=== PATIENT | male | born 1990 | race Caucasian/White ===

== ENCOUNTER 2017-11-20 00:41 | Emergency (ER) | payer OTHER ==
[2017-11-20 00:53] VITALS: PULSE 116; O2SAT 98
[2017-11-20] MEDS ORDERED: TENIVAC VIAL IM ONE (00:54)
--- NOTE | 2017-11-20 01:06 | ERPHSYRPT ---
- History of Present Illness Time Seen by Provider: 11/20/17 01:00 Source: patient Exam Limitations: no limitations Patient Subjective Stated Complaint: pt states he hit his head and lost consciousness for 1-2 seconds. Triage Nursing Assessment: Pt a&o. pt ambulatory. laceration noted above left eyebrow. bleeding controlled. bruising also noted on forehead. PERRLA. pt is responding and answering questions appropriately. Physician History: 27 y/o male sent from residential after hitting the left side of his forehead against a metal railing on the side of his bed. Pt does not remember hitting his head and was found on the floor unconscious for an unknown period of time. Pt describes the pain as aching, constant, 4/10, and pt has not taken any pain meds. No neck or back pain. Pt arrives with a 2 cm laceration above the left eyebrow. Tetanus is not up to date. Occurred: just prior to arrival Severity: mild Head Injury Location: frontal Method of Injury: direct blow Loss of Consciousness: other (unknown period of time unconscious) Associated Symptoms: denies symptoms Allergies/Adverse Reactions: No Known Drug Allergies Allergy (Unverified 11/20/17 01:23) Hx Tetanus, Diphtheria Vaccination/Date Given: No Hx Influenza Vaccination/Date Given: No Hx Pneumococcal Vaccination/Date Given: No - Review of Systems Constitutional: No Fever, No Chills Eyes: No Symptoms, No Vision Changes Ears, Nose, & Throat: No Symptoms Respiratory: No Cough, No Dyspnea Cardiac: No Chest Pain, No Edema, No Syncope Abdominal/Gastrointestinal: No Abdominal Pain, No Nausea, No Vomiting, No Diarrhea Genitourinary Symptoms: No Dysuria Musculoskeletal: No Back Pain, No Neck Pain Skin: No Rash Neurological: Headache, No Dizziness, No Focal Weakness, No Sensory Changes Psychological: No Symptoms Endocrine: No Symptoms All Other Systems: Reviewed and Negative - Past Medical History Pertinent Past Medical History: No Neurological History: No Pertinent History ENT History: No Pertinent History Cardiac History: No Pertinent History Respiratory History: No Pertinent History Endocrine Medical History: No Pertinent History Musculoskeletal History: No Pertinent History GI Medical History: No Pertinent History History: No Pertinent History Psycho-Social History: No Pertinent History Male Reproductive Disorders: No Pertinent History - Past Surgical History Past Surgical History: No Neuro Surgical History: No Pertinent History Cardiac: No Pertinent History Respiratory: No Pertinent History Gastrointestinal: No Pertinent History Genitourinary: No Pertinent History Musculoskeletal: No Pertinent History Male Surgical History: No Pertinent History - Social History Smoking Status: Former smoker How long have you smoked: 3 Exposure to second hand smoke: Yes Drug Use: marijuana Patient Lives Alone: No - Nursing Vital Signs Nursing Vital Signs: Initial Vital Signs Temperature 98.6 F 11/20/17 00:41 Pulse Rate 116 H 11/20/17 00:41 Blood Pressure 124/88 11/20/17 00:41 O2 Sat by Pulse Oximetry 98 11/20/17 00:41 Pain Scale Pain Intensity 5 - Stanley Coma Score Best Eye Response (Stanley): (4) open spontaneously Best Verbal Response (Stanley): (5) oriented Best Motor Response (Stanley): (6) obeys commands [place] Total: 15 - Physical Exam General Appearance: no apparent distress, alert Head Injury: contusions, lacerations, swelling Eye Exam: bilateral eye: PERRL, EOMI ENT Exam: airway nml Neck Exam: supple, trachea midline, full range of motion Cardiovascular/Respiratory Exam: chest non-tender, normal breath sounds, regular rate/rhythm Gastrointestinal/Abdominal Exam: soft, non tender, no distention Back Exam: normal inspection, No vertebral tenderness Extremity Exam: non-tender, normal range of motion, normal inspection Mental Status Exam: alert, oriented x 3, cooperative Motor/Sensory Exam: no motor deficit, no sensory deficit, CN II-XII intact Skin Exam: normal color, warm, dry, No rash SpO2: 98 Procedures - Laceration/Wound Repair Head Wound Location: Left, forehead Wound Length (cm): 2 Wound's Depth, Shape: into muscle, linear Wound Explored: clean Irrigated: Yes Hibiclens Prep: Yes Anesthesia: local, 1% Lidocaine Volume Anesthetic (ccs): 4 Wound Debrided: moderate Wound Repaired With: sutures Suture Size/Type: 4-0, ethilon Number of Sutures: 4 Layer Closure?: Yes - Course Nursing assessment & vital signs reviewed: Yes Ordered Tests: Active Orders 24 hr Category Date Time Status HEAD WITHOUT CONTRAST [CT] Stat Exams 11/20/17 01:02 Taken Medication Summary Discontinued Medications Generic Name Dose Route Start Last Admin Trade Name Freq PRN Reason Stop Dose Admin Tetanus/Diphtheria Toxoids Adsorbed Confirm 11/20/17 00:54 Tenivac Vial Administered 11/20/17 00:55 Dose 0.5 ml IM .STK-MED ONE - Progress Progress: improved Progress Note: 11/20/17 01:56 See Procedure Note. The CT scan head does not show any acute bleed. Pt will be sent back to residential. - Departure Time of Disposition: 01:57 Departure Disposition: Alf/Long Term Clinical Impression: Forehead laceration Qualifiers: Encounter type: initial encounter Qualified Code(s): S01.81XA - Laceration without foreign body of other part of head, initial encounter Condition: Stable Critical Care Time: No Referrals: DOCTOR,NO FAMILY [Primary Care Provider] - Instructions: Laceration Repair With Stitches (DC) Additional Instructions: Have the stitches removed in 7 days.
[2017-11-20 02:00] VITALS: BP 133/90
[2017-11-20] MEDS ORDERED: Adacel Vial IM ONE (04:51)
--- NOTE | 2017-11-20 09:07 | XRAY ---
Indication: Frontal head abrasion following fall out of bed. Multiple contiguous axial images obtained through the head without contrast. Comparison: None Tiny left frontal scalp soft tissue swelling. Otherwise normal appearing brain parenchyma, ventricles, and bony calvarium. Moderate mucosal thickening of the right ethmoid sinus and minimal in the left maxillary sinus. Mastoid air cells are clear. Impression: 1. Left frontal scalp soft tissue swelling. No underlying fracture or acute intracranial abnormalities. 2. Incidental paranasal sinus disease. Comment: Preliminary interpretation was made by [facility]. No discrepancy. CTDI 52.39
== END 2017-11-20 02:05 | disposition home or self-care (01) ==
LOC: ED 00:41
PROC: 0HQ1XZZ Repair Face Skin, External Approach (ICD-10-PCS; principal; 2017-11-20)
DX: S01.81XA Laceration without foreign body of other part of head, initial encounter (principal); W22.03XA Walked into furniture, initial encounter; Y92.89 Other specified places as the place of occurrence of the external cause
CPT/HCPCS: 12011; 70450; 90471; 90714; 90715; 99283; 99284

== ENCOUNTER 2018-04-22 18:20 | Emergency (ER) | payer OTHER ==
[2018-04-22 19:25] VITALS: BP 127/82; PULSE 86; O2SAT 99
[2018-04-22] MEDS ORDERED: Rocephin 1000 MG INJ IM ONE (20:09)
[2018-04-22] MEDS ORDERED: solu-MEDROL 125 MG IM ONE (20:09)
--- NOTE | 2018-04-22 20:09 | ERPHSYRPT ---
- History of Present Illness Time Seen by Provider: 04/22/18 19:45 Source: patient Exam Limitations: no limitations Patient Subjective Stated Complaint: Pt states "I have been having lower left lung pain for the past month, my girlfriend was in here earlier today and she has bronchitis and I have been coughing too." Triage Nursing Assessment: Pt alert and oriented X 3, skin pwd. PT ambulates with an upright steady gait, able to speak in clear full sentences. PT in no apparent respiratory distress. Pt is coughing occasionally, non productive, lung sounds clear equal bilat Physician History: 27 y/o white male presents with coughing for over a month. has intermittent left lateral rib pain with coughing. pts sig other here earlier today and dx with bronchitis. pt states he would like liquid meds for home Timing/Duration: intermittent, other (over a month) Cough Quality/Degree: mild, dry cough Possible Cause: occasional episodes Modifying Factors: Improves With: nothing Associated Symptoms: chest pain/soreness (left lateral chest wall), cough, No fever, No chills Allergies/Adverse Reactions: No Known Drug Allergies Allergy (Verified 04/22/18 19:25) Hx Tetanus, Diphtheria Vaccination/Date Given: Yes Hx Influenza Vaccination/Date Given: No Hx Pneumococcal Vaccination/Date Given: No Immunizations Up to Date: Yes - Review of Systems Constitutional: No Symptoms, No Fever, No Chills Eyes: No Symptoms, No Discharge, No Eye Pain Ears, Nose, & Throat: No Symptoms, No Ear Pain, No Ear Discharge Respiratory: Cough, No Dyspnea, No Stridor, No Wheezing Cardiac: No Symptoms, No Chest Pain, No Palpitations, No Syncope Abdominal/Gastrointestinal: No Symptoms, No Abdominal Pain, No Nausea, No Vomiting, No Diarrhea Genitourinary Symptoms: No Symptoms, No Dysuria, No Frequency, No Hematuria Musculoskeletal: No Symptoms, No Back Pain, No Neck Pain, No Fall, No Injury Skin: No Symptoms Neurological: No Symptoms Psychological: No Symptoms Endocrine: No Symptoms Hematologic/Lymphatic: No Symptoms Immunological/Allergic: No Symptoms All Other Systems: Reviewed and Negative - Past Medical History Pertinent Past Medical History: No Neurological History: No Pertinent History ENT History: No Pertinent History Cardiac History: No Pertinent History Respiratory History: No Pertinent History Endocrine Medical History: No Pertinent History Musculoskeletal History: No Pertinent History GI Medical History: No Pertinent History History: No Pertinent History Psycho-Social History: No Pertinent History Male Reproductive Disorders: No Pertinent History - Past Surgical History Past Surgical History: No Neuro Surgical History: No Pertinent History Cardiac: No Pertinent History Respiratory: No Pertinent History Gastrointestinal: No Pertinent History Genitourinary: No Pertinent History Musculoskeletal: No Pertinent History Male Surgical History: No Pertinent History - Social History Smoking Status: Current every day smoker How long have you smoked: years Exposure to second hand smoke: Yes Drug Use: marijuana Patient Lives Alone: No - Nursing Vital Signs Nursing Vital Signs: Initial Vital Signs Temperature 98.9 F 04/22/18 19:20 Pulse Rate 86 04/22/18 19:20 Respiratory Rate 18 04/22/18 19:20 Blood Pressure 127/82 04/22/18 19:20 O2 Sat by Pulse Oximetry 99 04/22/18 19:20 Pain Scale Pain Intensity 4 - Physical Exam General Appearance: no apparent distress, alert Eye Exam: PERRL/EOMI Ears, Nose, Throat Exam: normal ENT inspection Neck Exam: normal inspection, non-tender, supple, full range of motion Respiratory Exam: normal breath sounds, lungs clear, No respiratory distress, No airway intact, No diminished breath sounds, No accessory muscle use, No wheezing, No stridor Cardiovascular Exam: regular rate/rhythm Gastrointestinal/Abdomen Exam: soft, normal bowel sounds, No tenderness, No guarding, No rebound Rectal Exam: not done Back Exam: normal inspection, normal range of motion, No CVA tenderness, No vertebral tenderness Extremity Exam: normal inspection, normal range of motion, pelvis stable Neurologic Exam: alert, oriented x 3, cooperative, senior java j2ee developer II-XII nml as tested, normal mood/affect, nml cerebellar function Skin Exam: normal color, warm, dry Lymphatic Exam: No adenopathy SpO2 Interpretation: normal SpO2: 99 Oxygen Delivery: Room Air - Course Nursing assessment & vital signs reviewed: Yes Ordered Tests: Medication Summary Discontinued Medications Generic Name Dose Route Start Last Admin Trade Name Freq PRN Reason Stop Dose Admin Hydrocodone Bitart/Acetaminophen 10 ml 04/22/18 20:10 04/22/18 20:23 Hydrocodone-Acetamin 2.5-108/5 Ml Solution PO 04/22/18 20:11 10 ml STAT STA Administration Hydrocodone Bitart/Acetaminophen Confirm 04/22/18 20:13 Hydrocodone-Acetamin 2.5-108/5 Ml Solution Administered 04/22/18 20:14 Dose 10 ml .ROUTE .STK-MED ONE Ceftriaxone Sodium 1,000 mg 04/22/18 20:09 04/22/18 20:22 Rocephin 1000 Mg Inj IM 04/22/18 20:10 1,000 mg STAT ONE Administration Ceftriaxone Sodium Confirm 04/22/18 20:13 Rocephin 1000 Mg Inj Administered 04/22/18 20:14 Dose 1,000 mg .ROUTE .STK-MED ONE Lidocaine HCl Confirm 04/22/18 20:14 Xylocaine 1% Hcl 20 Ml Mdv Administered 04/22/18 20:15 Dose 3 ml .ROUTE .STK-MED ONE Methylprednisolone Sodium Succinate 125 mg 04/22/18 20:09 04/22/18 20:22 Solu-Medrol 125 Mg IM 04/22/18 20:10 125 mg STAT ONE Administration Methylprednisolone Sodium Succinate Confirm 04/22/18 20:13 Solu-Medrol 125 Mg Administered 04/22/18 20:14 Dose 125 mg .ROUTE .STK-MED ONE - Progress Progress: unchanged Air Movement: good Blood Culture(s) Obtained: No Antibiotics given: Yes Counseled pt/family regarding: diagnosis, need for follow-up - Departure Time of Disposition: 20:34 Departure Disposition: Home Clinical Impression: Bronchitis Condition: Stable Critical Care Time: No Referrals: DOCTOR,NO FAMILY [Primary Care Provider] - Additional Instructions: drink plenty of fluids. follow up with primary doctor for further management Prescriptions: Hydrocodone Bit/Acetaminophen [Hydrocodone-Acetaminophen Soln] 5 ml PO Q12H PRN PRN #30 ml PRN Reason: Cough Azithromycin 200 mg/5 ml [Zithromax 200MG/5 ML LIQUID] 500 mg PO DAILY 3 Days #40 ml Prednisolone 5 mg/5 ml [Pediapred SOLUTION 5 MG/5 ML] 5 mg PO BID #25 ml
[2018-04-22] MEDS ORDERED: HYDROCODONE-ACETAMIN 2.5-108/5 ML SOLUTION PO STA (20:10)
[2018-04-22] MEDS ORDERED: HYDROCODONE-ACETAMIN 2.5-108/5 ML SOLUTION ONE (20:13)
[2018-04-22] MEDS ORDERED: solu-MEDROL 125 MG ONE (20:13)
[2018-04-22] MEDS ORDERED: Rocephin 1000 MG INJ ONE (20:13)
[2018-04-22] MEDS ORDERED: XYLOCAINE 1% HCL 20 ML MDV ONE (20:14)
== END 2018-04-22 20:48 | disposition home or self-care (01) ==
LOC: ED 18:20
DX: J40 Bronchitis, not specified as acute or chronic (principal)
CPT/HCPCS: 96372; 99284; J0696; J2930

== ENCOUNTER 2018-05-30 02:57 | Emergency (ER) | payer OTHER ==
[2018-05-30 03:14] VITALS: PULSE 94; O2SAT 97
--- NOTE | 2018-05-30 03:27 | ERPHSYRPT ---
- History of Present Illness Time Seen by Provider: 05/30/18 03:22 Source: patient Exam Limitations: no limitations Patient Subjective Stated Complaint: pt states was treated for Bronchitis mid Apr and since has had pain in his left lung, SOB, pain with inspiration, prod cough dark colored sputum Triage Nursing Assessment: resp easy, lungs CTA, o2 sats 98% RA, prod cough per pt, c/o sharp pain with inspiration and laying on his left side. Physician History: The patient is a 27-year-old male with his girlfriend complaining of a cough and pain on his left side of his chest with coughing that began 4 months ago or around 14 February. He was seen in this ER in April for the same thing and was given antibiotics and steroids and cough syrup. Tonight he said it hurts when he lays on his left side or coughs. He says he walked to 3 miles with his girlfriend to get here. He smokes. He denies fever or chills. Timing/Duration: gradual onset, worse, other (4 months) Cough Quality/Degree: productive cough Possible Cause: smoke exposure Modifying Factors: Improves With: coughing, lying down Associated Symptoms: cough Allergies/Adverse Reactions: No Known Drug Allergies Allergy (Verified 04/22/18 19:25) Hx Tetanus, Diphtheria Vaccination/Date Given: Yes Hx Influenza Vaccination/Date Given: No Hx Pneumococcal Vaccination/Date Given: No Immunizations Up to Date: Yes - Review of Systems Constitutional: No Fever, No Chills Eyes: No Symptoms Ears, Nose, & Throat: No Symptoms Respiratory: Cough Cardiac: No Chest Pain, No Edema, No Syncope Abdominal/Gastrointestinal: No Abdominal Pain, No Nausea, No Vomiting, No Diarrhea Genitourinary Symptoms: No Dysuria Musculoskeletal: No Back Pain, No Neck Pain Skin: No Rash Neurological: No Dizziness, No Focal Weakness, No Sensory Changes Psychological: No Symptoms Endocrine: No Symptoms Hematologic/Lymphatic: No Symptoms Immunological/Allergic: No Symptoms All Other Systems: Reviewed and Negative - Past Medical History Pertinent Past Medical History: No Neurological History: No Pertinent History ENT History: No Pertinent History Cardiac History: No Pertinent History Respiratory History: No Pertinent History Endocrine Medical History: No Pertinent History Musculoskeletal History: No Pertinent History GI Medical History: No Pertinent History History: No Pertinent History Psycho-Social History: No Pertinent History Male Reproductive Disorders: No Pertinent History - Past Surgical History Past Surgical History: No Neuro Surgical History: No Pertinent History Cardiac: No Pertinent History Respiratory: No Pertinent History Gastrointestinal: No Pertinent History Genitourinary: No Pertinent History Musculoskeletal: No Pertinent History Male Surgical History: No Pertinent History - Social History Smoking Status: Current every day smoker How long have you smoked: years Exposure to second hand smoke: Yes Drug Use: marijuana Patient Lives Alone: No - Nursing Vital Signs Nursing Vital Signs: Initial Vital Signs Temperature 97.8 F 05/30/18 02:57 Pulse Rate 94 H 05/30/18 02:57 Respiratory Rate 20 05/30/18 02:57 Blood Pressure 145/89 05/30/18 02:57 O2 Sat by Pulse Oximetry 97 05/30/18 02:57 Pain Scale Pain Intensity 5 - Physical Exam General Appearance: no apparent distress, alert Eye Exam: PERRL/EOMI, eyes nml inspection Ears, Nose, Throat Exam: normal ENT inspection, TMs normal, pharynx normal, moist mucous membranes Neck Exam: normal inspection, non-tender, supple, full range of motion Respiratory Exam: normal breath sounds, lungs clear, No chest tenderness, No respiratory distress, No prolonged expirations, No crackles/rales, No rhonchi, No wheezing Cardiovascular Exam: regular rate/rhythm, normal heart sounds Gastrointestinal/Abdomen Exam: soft, No tenderness Rectal Exam: not done Back Exam: normal inspection, No CVA tenderness, No vertebral tenderness Extremity Exam: normal inspection, normal range of motion Neurologic Exam: alert, oriented x 3, cooperative, normal mood/affect, sensation nml, No motor deficits Skin Exam: normal color, warm, dry, No rash Lymphatic Exam: No adenopathy SpO2 Interpretation: normal SpO2: 97 Oxygen Delivery: Room Air - Radiology Exams Chest X-ray Interpretation: Interpreted by me, Negative, No Pneumonia, No Infiltrates Ordered Tests: Active Orders 24 hr Category Date Time Status CHEST 2 VIEWS (PA AND LAT) Stat Exams 05/30/18 03:31 Ordered Medication Summary Discontinued Medications Generic Name Dose Route Start Last Admin Trade Name Freq PRN Reason Stop Dose Admin Ketorolac Tromethamine 60 mg 05/30/18 03:32 05/30/18 03:37 Toradol 30 Mg Injection IM 05/30/18 03:33 60 mg STAT ONE Administration Ketorolac Tromethamine Confirm 05/30/18 03:35 Toradol 30 Mg Injection Administered 05/30/18 03:36 Dose 60 mg .ROUTE .STK-MED ONE - Progress Progress: improved Air Movement: good Blood Culture(s) Obtained: No Antibiotics given: No - Departure Time of Disposition: 03:53 Departure Disposition: Home Clinical Impression: Bronchitis Condition: Stable Critical Care Time: No Referrals: DOCTOR,NO FAMILY [Primary Care Provider] - Additional Instructions: You once again have bronchitis. The chest x-ray did not show pneumonia. You were given Toradol 60 mg by IM in the ER. We will try a different antibiotic this time. Take ciprofloxacin 500 mg 2 times a day for 10 days. For your cough , take Tessalon Perles 100 mg every 8 hours as needed. Follow-up with your primary doctor if no improvement. Prescriptions: Benzonatate [Tessalon Perle] 100 mg PO Q8H PRN PRN #10 capsule PRN Reason: Cough Ciprofloxacin [Cipro 500 MG] 1 tab PO BID #20 tablet
[2018-05-30] MEDS ORDERED: TORAdol 30 mg Injection IM ONE (03:32)
[2018-05-30] MEDS ORDERED: TORAdol 30 mg Injection ONE (03:35)
[2018-05-30 04:13] VITALS: BP 129/87
--- NOTE | 2018-05-30 08:40 | XRAY ---
Indication: Productive cough 3 months. Comparison: None PA/lateral chest demonstrates normal heart and lungs. Bony thorax intact with minimal dextroscoliosis.
== END 2018-05-30 04:10 | disposition home or self-care (01) ==
LOC: ED 02:57
DX: J40 Bronchitis, not specified as acute or chronic (principal)
CPT/HCPCS: 71046; 96372; 99284; J1885

== ENCOUNTER 2018-11-12 15:25 | Emergency (ER) | payer OTHER ==
--- NOTE | 2018-11-12 15:53 | ERPHSYRPT ---
- History of Present Illness Time Seen by Provider: 11/12/18 15:39 Source: patient Exam Limitations: no limitations Patient Subjective Stated Complaint: pt here for runny nose, cough,productive brown, ill for 2 weeks now, Triage Nursing Assessment: pt alert, resp easy, skin w/d/p Physician History: C/o productive cough, dark, brown sputum, x 2 weeks. It started with sore throat ,vomited once, denies chest pain, difficulty breathing, current vomiting or diarrhea, no fever, chills or other complaints. Timing/Duration: week(s) (2) Cough Quality/Degree: productive cough, sputum Possible Cause: occasional episodes Modifying Factors: Improves With: nothing Associated Symptoms: denies symptoms Allergies/Adverse Reactions: No Known Drug Allergies Allergy (Verified 11/12/18 15:41) Hx Tetanus, Diphtheria Vaccination/Date Given: No Hx Influenza Vaccination/Date Given: No Hx Pneumococcal Vaccination/Date Given: No Immunizations Up to Date: Yes - Review of Systems Constitutional: No Symptoms Eyes: No Symptoms Ears, Nose, & Throat: Nose Congestion Respiratory: Cough, No Dyspnea Cardiac: No Symptoms Abdominal/Gastrointestinal: No Symptoms Genitourinary Symptoms: No Symptoms Musculoskeletal: No Symptoms Skin: No Symptoms Neurological: No Symptoms All Other Systems: Reviewed and Negative - Past Medical History Pertinent Past Medical History: No Neurological History: No Pertinent History ENT History: No Pertinent History Cardiac History: No Pertinent History Respiratory History: No Pertinent History Endocrine Medical History: No Pertinent History Musculoskeletal History: No Pertinent History GI Medical History: No Pertinent History History: No Pertinent History Psycho-Social History: No Pertinent History Male Reproductive Disorders: No Pertinent History - Past Surgical History Past Surgical History: Yes Neuro Surgical History: No Pertinent History Cardiac: No Pertinent History Respiratory: No Pertinent History Gastrointestinal: No Pertinent History Genitourinary: No Pertinent History Musculoskeletal: Orthopedic Surgery Male Surgical History: No Pertinent History Other Surgical History: hand surgery - Social History Smoking Status: Current every day smoker How long have you smoked: years Exposure to second hand smoke: Yes Drug Use: marijuana Patient Lives Alone: No - Nursing Vital Signs Nursing Vital Signs: Initial Vital Signs Temperature 98.0 F 11/12/18 15:37 Pulse Rate 70 11/12/18 15:37 Respiratory Rate 16 11/12/18 15:37 Blood Pressure 132/94 11/12/18 15:37 O2 Sat by Pulse Oximetry 97 11/12/18 15:37 Pain Scale Pain Intensity 0 - Physical Exam General Appearance: no apparent distress Eye Exam: eyes nml inspection Ears, Nose, Throat Exam: normal ENT inspection, TMs normal, pharynx normal, moist mucous membranes Neck Exam: normal inspection, non-tender, supple, No mass, No JVD Respiratory Exam: normal breath sounds, lungs clear, airway intact, No chest tenderness Cardiovascular Exam: regular rate/rhythm, normal heart sounds, normal peripheral pulses, No murmur Gastrointestinal/Abdomen Exam: soft, normal bowel sounds, No tenderness Extremity Exam: normal inspection, No calf tenderness, No jose's sign Neurologic Exam: alert, oriented x 3, cooperative, normal mood/affect Skin Exam: normal color, warm, dry, No rash Lymphatic Exam: No adenopathy SpO2: 98 O2 Delivery: Room Air - Course Nursing assessment & vital signs reviewed: Yes - Radiology Exams Chest X-ray Interpretation: Reviewed by me, Negative Ordered Tests: Active Orders 24 hr Category Date Time Status CHEST 2 VIEWS (PA AND LAT) Stat Exams 11/12/18 15:45 Completed Lab/Rad Data: Laboratory Results 11/12/18 Range/Units 15:53 Influenza Type A Ag NEGATIVE (NEGATIVE) Influenza Type B Ag NEGATIVE (NEGATIVE) RSV (PCR) NEGATIVE (Negative) Group A Strep Antibody NEGATIVE (NEGATIVE) - Progress Progress: unchanged Air Movement: good Progress Note: 11/12/18 17:07 We reviewed his X ray and swab results, he is being discharged on Po Amoxicillin , to rest x 2-3 days, drink plenty of fluids, and follow up with his physician in 3-4 days. Blood Culture(s) Obtained: No Antibiotics given: Yes Counseled pt/family regarding: lab results, diagnosis, need for follow-up, rad results - Departure Departure Disposition: Home Clinical Impression: Sinusitis Qualifiers: Sinusitis location: unspecified location Chronicity: acute Recurrence: non- recurrent Qualified Code(s): J01.90 - Acute sinusitis, unspecified Condition: Stable Critical Care Time: No Referrals: DOCTOR,NO FAMILY [Primary Care Provider] - Instructions: Cough, Adult (DC), Sinusitis, Adult (DC) Additional Instructions: Rest x 2-3 days, drink plenty of fluids and follow up with your physician in 3- 4 days, return if severe headaches, vomiting, fever> 103 F, lethargy ! Prescriptions: Amoxicillin 500 mg PO TID #30 capsule
--- NOTE | 2018-11-12 16:12 | XRAY ---
Indication: Fever and cough. Comparison: May 30, 2018. PA/lateral chest again demonstrates normal heart, lungs, and bony thorax.
[2018-11-12 16:43] VITALS: BP 135/89; PULSE 72
[2018-11-12 16:48] LABS: Group A Strep NEGATIVE (NEGATIVE); INFLUENZA A NEGATIVE (NEGATIVE); INFLUENZA B NEGATIVE (NEGATIVE); RESPIRATORY SYNCTIAL VIRUS NEGATIVE (Negative)
[2018-11-12 17:15] VITALS: O2SAT 98
== END 2018-11-12 17:37 | disposition home or self-care (01) ==
LOC: ED 15:25
DX: J01.90 Acute sinusitis, unspecified (principal)
CPT/HCPCS: 71046; 87631; 87651; 99284